=== PATIENT | female | born 1990 | race African-American/Black ===

== ENCOUNTER 2018-10-03 13:08 | Emergency (ER) | payer OTHER ==
[~2018-10-03] VITALS: Ht 170.2 cm; Wt 254.0 kg
[2018-10-03 13:14] VITALS: BP 145/102; Ht 170.2 cm; Wt 254.0 kg
== END 2018-10-03 14:18 | disposition home or self-care (01) ==
LOC: ED 13:08
DX: T22.111A Burn of first degree of right forearm, initial encounter (principal); T31.0 Burns involving less than 10% of body surface; N93.8 Other specified abnormal uterine and vaginal bleeding; Z88.5 Allergy status to narcotic agent; X11.8XXA Contact with other hot tap-water, initial encounter; Y93.89 Activity, other specified; Y92.89 Other specified places as the place of occurrence of the external cause; Y99.8 Other external cause status
CPT/HCPCS: 90715